=== PATIENT | female | born 1955 | race Hispanic/Latino ===

== ENCOUNTER 2022-12-26 06:33 | Day surgery (SDC) | payer OTHER ==
[2022-12-26] MEDS ORDERED: Ringers Lactate 1,000 ML IV ONE (07:18)
[2022-12-26] MEDS ORDERED: SUMATRIPTAN SUCCI 50 MG TAB PO ONE (08:00)
[2022-12-26] MEDS ORDERED: LIDOCAINE 1% MPF 5 ML VIAL ONE (08:36)
[2022-12-26] MEDS ORDERED: propofoL 200 MG/20 ML VIAL IV ONE ×3 (08:36)
[2022-12-26] MEDS ORDERED: GLYCOPYRROLATE 0.2 MG/ML SYR ONE (09:06)
[2022-12-26 10:49] VITALS: TEMP 97.2
[2022-12-26 10:51] VITALS: BP 158/88; O2SAT 98
--- NOTE | 2022-12-26 18:07 | EKG ---
Test Date: 2022-12-25 Test Time: 08:07:54 [employer] Treater: NAOMY MEASUREMENT RESULTS: Intervals: Rate: 49 TN: 208 QRSD: 86 QT: 436 QTc: 393 [place]: P: 35 TN: 208 QRS: 34 T: 64 INTERPRETIVE STATEMENTS: Marked sinus bradycardia Nonspecific T wave abnormality Abnormal ECG Compared to ECG 03/24/2012 17:14:40 T-wave abnormality now present Sinus rhythm no longer present ST (T wave) deviation no longer present Electronically Signed On 12-26-22 18:04:02 CDT by Jay Bassett
== END 2022-12-26 09:55 | disposition home or self-care (01) ==
LOC: OR 06:33
PROVIDERS: ATTEND Internal Medicine Gastroenterology
PROC: 0DBF8ZX Excision of Right Large Intestine, Via Natural or Artificial Opening Endoscopic, Diagnostic (ICD-10-PCS; 2022-12-26)
PROC: 0DB68ZX Excision of Stomach, Via Natural or Artificial Opening Endoscopic, Diagnostic (ICD-10-PCS; 2022-12-26)
PROC: 0DB88ZX Excision of Small Intestine, Via Natural or Artificial Opening Endoscopic, Diagnostic (ICD-10-PCS; 2022-12-26)
PROC: 0DBG8ZX Excision of Left Large Intestine, Via Natural or Artificial Opening Endoscopic, Diagnostic (ICD-10-PCS; principal; 2022-12-26 08:45)
PROC: 0DBP8ZX Excision of Rectum, Via Natural or Artificial Opening Endoscopic, Diagnostic (ICD-10-PCS; 2022-12-26 08:45)
DX: R19.7 Diarrhea, unspecified (principal); R19.4 Change in bowel habit; Z86.010 Personal history of colon polyps; K21.9 Gastro-esophageal reflux disease without esophagitis; R14.2 Eructation; R10.13 Epigastric pain; I10 Essential (primary) hypertension; E03.9 Hypothyroidism, unspecified; K44.9 Diaphragmatic hernia without obstruction or gangrene; K29.60 Other gastritis without bleeding; K29.50 Unspecified chronic gastritis without bleeding
CPT/HCPCS: 93005; 88312; 88305; 45380; 43239; J2704 ×2; J2001; J7120